=== PATIENT | female | born 1965 | race Caucasian/White ===

== ENCOUNTER 2018-09-15 23:36 | Emergency (ER) | payer SELFPAY ==
[2018-09-15 23:43] VITALS: BP 140/84
[2018-09-16] MEDS ORDERED: Acetaminophen/HYDROcodone 325-5 MG Tab PO ONE (00:08)
--- NOTE | 2018-09-16 00:16 | EDM.PDOC ---
ED HPI GENERAL MEDICAL PROBLEM - General Chief Complaint: Upper Extremity Injury/Pain Stated Complaint: LEFT ARM PAIN Time Seen by Provider: 09/15/18 23:56 Source of Information: Reports: Patient, Family History Limitations: Reports: No Limitations - History of Present Illness INITIAL COMMENTS - FREE TEXT/NARRATIVE: in with c/o tripped and fell, has left wrist pain and swelling just prior to coming to the ED, did not hit head, no LOC, no neck/back pain or stiffness, no hand pain, no elbow or shoulder pain Onset: Today Duration: Minutes: Location: Reports: Upper Extremity, Left (wrist) Quality: Reports: Ache Severity: Moderate Improves with: Reports: None Worsens with: Reports: Movement Context: Reports: Trauma Associated Symptoms: Denies: Chest Pain, Nausea/Vomiting, Shortness of Breath, Syncope, Weakness 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 Psychiatric History: Reports: Anxiety, Depression Other Psychiatric History: Pt states she used to take an anti-depressant - Past Surgical History Other Musculoskeletal Surgeries/Procedures:: history left arm fracture. Social & Family History - Family History Cardiac: Reports: Hypertension - Tobacco Use Smoking Status *Q: Current Every Day Smoker Years of Tobacco use: 29 Packs/Tins Daily: 1 - Caffeine Use Caffeine Use: Reports: Soda - Recreational Drug Use Recreational Drug Use: No - Living Situation & Occupation Living situation: Reports: with Family Review of Systems - Review of Systems Review Of Systems: See Below Constitutional: Reports: No Symptoms Eyes: Reports: No Symptoms Ears: Reports: No Symptoms Nose: Reports: No Symptoms Mouth/Throat: Reports: No Symptoms Respiratory: Reports: No Symptoms Cardiovascular: Reports: No Symptoms GI/Abdominal: Reports: No Symptoms. Denies: Nausea, Vomiting Genitourinary: Reports: No Symptoms Musculoskeletal: Reports: Joint Pain (left wrist). Denies: Neck Pain, Shoulder Pain, Back Pain Skin: Reports: No Symptoms. Denies: Bruising Neurological: Reports: No Symptoms. Denies: Headache, Numbness, Tingling, Difficulty Walking ED EXAM, GENERAL - Physical Exam Exam: See Below Exam Limited By: No Limitations General Appearance: Alert, WD/WN Ears: Normal External Exam Nose: Normal Inspection Throat/Mouth: Normal Lips, Normal Voice, No Airway Compromise Head: Atraumatic, Normocephalic Neck: Normal Inspection, Supple, Non-Tender, Full Range of Motion Respiratory/Chest: No Respiratory Distress, Lungs Clear, Normal Breath Sounds, Chest Non-Tender Cardiovascular: Normal Peripheral Pulses, Regular Rate, Rhythm, No Edema, No Murmur Peripheral Pulses: 2+: Radial (L), Radial (R) GI/Abdominal: Soft, Non-Tender Back Exam: Normal Inspection, Full Range of Motion. No: Vertebral Tenderness Extremities: No Pedal Edema, Normal Capillary Refill, Joint Swelling (left wrist ), Other (left wrist pain) Neurological: Alert, Oriented, Normal Cognition, Normal Gait, No Motor/Sensory Deficits Psychiatric: Normal Mood Skin Exam: Warm, Dry, Intact, Normal Color ED TRAUMA EXTREMITY PROCEDURES - Splinting Left Upper Extremity Pre-Procedure NV Status: Normal Post-Procedure NV Status: Normal Splint Material: Velcro Splint Design: Thumb Spica Applied & Form Fitted By: Provider Provider Post-Splint Application NV Check: NV Status Normal, Good Position Complications: No Progress/Comments: will f/u in clinic for referral to ortho Course - Vital Signs Last Recorded V/S: Last Vital Signs Temp 37.2 C 09/15/18 23:40 Pulse 96 09/16/18 00:32 Resp 20 09/15/18 23:40 BP 140/84 09/15/18 23:40 Pulse Ox 96 09/16/18 00:32 - Orders/Labs/Meds Orders: Active Orders 24 hr Category Date Time Status Wrist Comp Min 3V Lt [CR] Stat Exams 09/16/18 00:07 Taken Meds: Medications Discontinued Medications Generic Name Dose Route Start Last Admin Trade Name Freq PRN Reason Stop Dose Admin Hydrocodone Bitart/Acetaminophen 1 tab 09/16/18 00:08 09/16/18 00:17 [place] 325-5 Mg PO 09/16/18 00:09 1 tab ONETIME ONE Administration Departure - Departure Time of Disposition: 00:55 Disposition: Home, Self-Care 01 Condition: Good Clinical Impression: Sprain of left wrist - Discharge Information *PRESCRIPTION DRUG MONITORING PROGRAM REVIEWED*: Not Applicable *COPY OF PRESCRIPTION DRUG MONITORING REPORT IN PATIENT MADIE: Not Applicable Prescriptions: Ibuprofen [Motrin] 800 mg PO Q8HR PRN 10 Days #30 tablet PRN Reason: Pain Instructions: Wrist Sprain, Adult Referrals: Heather Seaman PA [Primary Care Provider] - Forms: ED Department Discharge Additional Instructions: elevate left wrist on 2 pillows ice off and on frequently for 2 days wear the splint as discussed follow up in the clinic this week for referral to an orthopedic doctor, call in the morning for an appointment time return to the ER as needed - Problem List & Annotations (1) Sprain of left wrist SNOMED Code(s): 76161352 Code(s): S63.502A - UNSPECIFIED SPRAIN OF LEFT WRIST, INITIAL ENCOUNTER Status: Acute Priority: Medium Current Visit: Yes Qualifiers: Encounter type: initial encounter Qualified Code(s): S63.502A - Unspecified sprain of left wrist, initial encounter - Problem List Review Problem List Initiated/Reviewed/Updated: Yes - My Orders Last 24 Hours: My Active Orders 09/16/18 00:07 Wrist Comp Min 3V Lt [CR] Stat - Assessment/Plan Last 24 Hours: My Active Orders 09/16/18 00:07 Wrist Comp Min 3V Lt [CR] Stat Plan: no definite fracture of the wrist seen, however there is question of a subtle cortical irregularity of the distal radial bone and thus the pt placed in a wrist forearm spika splint until reviewed by radiology and assessed by ortho.
== END 2018-09-16 01:09 | disposition home or self-care (01) ==
LOC: CC.ED 23:36
DX: S63.502A Unspecified sprain of left wrist, initial encounter (principal); F17.210 Nicotine dependence, cigarettes, uncomplicated; Z91.040 Latex allergy status; W01.0XXA Fall on same level from slipping, tripping and stumbling without subsequent striking against object, initial encounter
CPT/HCPCS: 29125; 73110-LT; 99283-25; A9270-GY